=== PATIENT | male | born 1950 | race Asian ===

== ENCOUNTER → 2017-12-21 | Outpatient (CLI) | payer MEDICARE ==
--- NOTE | 2017-12-21 10:19 | Diagnostic Imaging Report ---
PROCEDURE:US ABDOMEN LIMITED COMPARISON:None. INDICATIONS:RUQ PAIN TECHNIQUE: Flowers-scale and color doppler transverse and longitudinal images of the right upper quadrant of the abdomen were obtained. FINDINGS: Liver: Measures 11 cm in right mid-clavicular line. Increased echogenicity. No masses. Main portal vein: Measures 1 cm, hepatopedal flow. Gallbladder: No gallbladder wall thickening, distension, or pericholecystic fluid. Common Bile Duct: Measures 0.4 cm Sonographic Coburn's sign: Negative Right kidney: Measures 10.2 cm. Normal echogenicity. No solid masses or hydronephrosis. Pancreas: The visualized portions are unremarkable. Inferior vena cava: Patent Aorta: Within normal limits Ascites: None in the right upper quadrant of the abdomen. CONCLUSION: No sonographic evidence of cholecystitis. Hepatic steatosis. Dictated by: GREGORY CAMPOS M.D. on 12/21/2017 at 10:25 Electronically approved by: GREGORY CAMPOS M.D. on 12/21/2017 at 10:25
== END ==
LOC: US 09:22
PROVIDERS: ATTEND Family Medicine
DX: R10.11 Right upper quadrant pain (principal)
CPT/HCPCS: 76705